=== PATIENT | male | born 1995 | race Caucasian/White ===

== ENCOUNTER 2024-05-14 23:12 | Emergency (ER) | payer OTHER, SELFPAY ==
--- NOTE | ~2024-05-14 | XR_ITS ---
EXAMINATION: XR chest 2V DATE: 05/14/2024 23:48 INDICATION: Shortness of breath. TECHNIQUE: Frontal and lateral views of the chest were obtained. COMPARISON: None. FINDINGS: There is no pneumonia, pleural effusion, or pneumothorax. The heart size is normal. IMPRESSION: 1. No acute cardiopulmonary disease. Reviewed, dictated and finalized at location [facility]
[2024-05-14 23:14] VITALS: BP 155/87; PULSE 82; RESP 15; TEMP 36.6; O2SAT 100
--- NOTE | 2024-05-14 23:17 | ECG_ITS ---
Test Date: 2024-05-14 23:23:05 Measurements Intervals [place] Rate: 78 P: 29 TN: 157 QRS: 37 QRSD: 94 T: 34 QT: 354 QTc: 404 Interpretive Statements SINUS RHYTHM BASELINE ARTIFACT- II, III, AVR, AVL, AVF NORMAL ECG No previous ECG available for comparison Electronically Signed On 05-15-2024 06:20:48 [employer] by Butch Wolf D.O.
[2024-05-14 23:35] LABS: Basophils Absolute Auto 0.1 K/mm3 (0.0-0.1); Eosinophils Absolute Auto 0.1 K/mm3 (0-0.3); Eosinophils Percent Auto 1.3 % (0-4.4); Hematocrit 45.3 % (42.0-52.0); Hemoglobin 16.2 g/dL (14.0-18.0); Immature Granulocyte Absolute 0.02 K/mm3 (0.00-0.031); Immature Granulocyte Percent A 0.3 % (0-0.5); Lymphocytes Absolute Auto 2.02 K/mm3 (0.9-3.2); Mean Corpuscular HGB Conc 35.8 g/dl (32-36); Mean Corpuscular Volume 86.6 fl (80-100); Mean Platelet Volume 11.3 fl (7.4-10.4); Monocytes Absolute Auto 0.7 K/mm3 (0.1-0.6); Monocytes Percent Auto 11.3 % (2.6-8.5); Neutrophils Absolute Auto 3.3 K/mm3 (1.3-6.7); Neutrophils Percent Auto 53.1 % (45.5-73.1); Platelet Count Result 208 k/mm3 (150-375); Red Blood Count 5.23 M/mm3 (4.6-6.20); Red Cell Distribution Width 11.9 % (11.5-14.5); White Blood Count 6.1 K/mm3 (4.5-10.0)
[2024-05-14 23:48] LABS: Alanine Aminotransferase 38 U/L (6-50); Albumin Level 4.6 g/dL (3.5-5.1); Alkaline Phosphatase 60 U/L (38-126); Anion Gap 10 mmol/L (4-12); Aspartate Amino Transferase 37 U/L (17-59); Bilirubin,Total 0.7 mg/dL (0.2-1.3); Blood Urea Nitrogen 16 mg/dL (9-20); Calcium 9.2 mg/dL (8.4-10.2); Carbon Dioxide 23 mmol/L (22-30); Chloride 106 mmol/L (98-107); Estimated CRCL calculation 123 ml/min; Estimated Glomerular Filt Rate > 60; Glucose 100 mg/dL (65-110); Potassium 3.5 mmol/L (3.4-5.0); Sodium 139 mmol/L (137-145)
[2024-05-15 01:16] VITALS: BP 122/73; PULSE 74; RESP 15; TEMP 36.4; O2SAT 97
[2024-05-15 03:17] VITALS: PULSE 63; O2SAT 96
[2024-05-15] MEDS: predniSONE 20 MG TABLET 60 MG PO (03:29)
[2024-05-15] MEDS: IPRATROPIUM 0.5 MG/ALBUTEROL SULFATE 2.5 MG AMPUL.NEB 3 ML INHALATION ×3 (03:40→03:45)
[2024-05-15 03:43] VITALS: PULSE 86; RESP 22
--- NOTE | 2024-05-15 03:46 | ED_ITS ---
HPI - Asthma General Chief Complaint: Asthma Stated Complaint: I have asthma cannot catch breath Time Seen by Provider: 05/15/24 03:12 History of Present Illness HPI Narrative: 28-year-old male with a past medical history significant for mild intermittent asthma presenting to the emergency department with an asthma exacerbation. 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 He had mild rhinorrhea but no productive cough or fevers. No chest discomfort aside from the tightness at the base of his lungs. States it feels like a normal asthma exacerbation but he has never had 1 this bad. Was initially breathless but took some rescue inhaler puffs of his albuterol with improvement. He has otherwise been in his normal state of health. No ICU stays or intubations in the past. On maintenance fluticasone and as needed rescue albuterol at home. No other inhalers or recent steroid therapy. No recent illnesses. Related Data Allergies Allergy/AdvReac Type Severity Reaction Status Date / Time No Known Allergies Allergy Verified 05/15/24 03:30 Review of Systems Review of Systems: As reviewed above in HPI Exam Narrative: GENERAL: no significant distress, talking full sentences, well-appearing well-nourished. HEAD: [Normocephalic, atraumatic.] EYES: [PERRLA and EOMI.] ENT: Nares clear, no rhinorrhea or epistaxis. Mucous membranes moist. NECK: Supple. CHEST: Scattered wheezes appreciated near the bases of both lungs, no prolonged expiratory phase, good inhalation and air entry, expiration. No accessory muscle use for respiration HEART: [Regular rate and rhythm]. No murmur heard. [Normal peripheral pulses.] ABDOMEN: [Soft, nondistended], [nontender], [No rigidity or guarding] EXTREMITIES: Normal range of motion. [No edema.] SKIN: Warm, dry, no rash. NEURO: [No focal deficits]. Alert and oriented [x3.] PSYCH: [Normal mood and affect.] Course Vital Signs Vital signs: Vital Signs Temperature 36.6 C 05/14/24 23:14 Pulse Rate 82 05/14/24 23:14 Respiratory Rate 15 05/14/24 23:14 Blood Pressure 155/87 H 05/14/24 23:14 Pulse Oximetry 100 05/14/24 23:14 Oxygen Delivery Room Air 05/14/24 23:14 Temperature 36.4 C 05/15/24 01:16 Pulse Rate 86 05/15/24 03:43 Respiratory Rate 22 H 05/15/24 03:43 Blood Pressure 122/73 05/15/24 01:16 Pulse Oximetry 96 05/15/24 03:17 Oxygen Delivery Room Air 05/15/24 03:17 MDM - Asthma MDM Narrative Medical decision making narrative: 28-year-old male presenting to the emergency depart with a mild asthma exacerbation. He has otherwise been in his normal state of health and initially was breathless but took some rescue inhaler puffs of his albuterol with improvement symptoms. This occurred several hours ago at work and has been slightly persistent with some residual chest tightness sensation. He does have some scattered wheezing but good air entry bilaterally without any accessory muscle use or respiratory distress. Slightly tachypneic with respiratory rate 22 but saturating well on room air without any fever. speaks in complete clear sentences. Overall appears well. Will treat for mild asthma exacerbation with continuous DuoNeb inhalation and laboratory studies were obtained in triage. X-ray of the chest was ordered as well as p.o. prednisone. EKG was obtained given the chest tightness sensation. Laboratory studies showed no leukocytosis or anemia. Normal platelets. Electrolytes within normal limits, normal renal function panel, normal hepatic function panel. I independently reviewed patient's two view chest x-ray and I do not appreciate any focal consolidations, pneumothorax or opacification. Appears to be clear without any acute cardiopulmonary process. Radiology read pending. patient was re-evaluated after nebulizer treatments and complete symptomatic resolution. At this time is stable for discharge home will be sent home with a short course of prednisone for the next several days encouraged to follow-up with primary care provider. Patient given return precautions expressed understanding of these instructions prior to safe discharge home at this time. Differential Diagnosis Differential diagnosis: Likely Acute exacerbation, Status asthmaticus, Pneumonia, Pneumothorax, Foreign body in trachea and other Medical Records Attestation: I reviewed the patient's medical records. Lab Data Attestation: I reviewed the patient's lab results. 05/14/24 23:28 05/14/24 23:28 Labs: Lab Results 05/14/24 Range/Units 23:28 WBC 6.1 (4.5-10.0) K/mm3 RBC 5.23 (4.6-6.20) M/mm3 Hgb 16.2 (14.0-18.0) g/dL Hct 45.3 (42.0-52.0) % MCV 86.6 (80-100) fl MCH 31.0 (26-34) pg MCHC 35.8 (32-36) g/dl RDW 11.9 (11.5-14.5) % Plt Count 208 (150-375) k/mm3 MPV 11.3 H (7.4-10.4) fl Immature Gran % (Auto) 0.3 (0-0.5) % Neut % (Auto) 53.1 (45.5-73.1) % Lymph % (Auto) 33.0 (18.3-44.2) % [place] % (Auto) 11.3 H (2.6-8.5) % Eos % (Auto) 1.3 (0-4.4) % Baso % (Auto) 1.0 (0.2-1.2) % Lymph # (Auto) 2.02 (0.9-3.2) K/mm3 [place] # (Auto) 0.7 H (0.1-0.6) K/mm3 Eos # (Auto) 0.1 (0-0.3) K/mm3 Baso # (Auto) 0.1 (0.0-0.1) K/mm3 Abs Immat Gran (auto) 0.02 (0.00-0.031) K/mm3 Absolute Neuts (auto) 3.3 (1.3-6.7) K/mm3 Absolute Nucleated RBC 0.000 (0.0-0.012) K/mm3 Nucleated RBC % 0.0 (0.0-0.2) % Sodium 139 (137-145) mmol/L Potassium 3.5 (3.4-5.0) mmol/L Chloride 106 (98-107) mmol/L Carbon Dioxide 23 (22-30) mmol/L Anion Gap 10 (4-12) mmol/L BUN 16 (9-20) mg/dL Creatinine 1.00 (0.7-1.3) mg/dL Estim Creat Clear Calc 123 ml/min Estimated GFR > 60 (59 - ) Glucose 100 (65-110) mg/dL Calcium 9.2 (8.4-10.2) mg/dL Total Bilirubin 0.7 (0.2-1.3) mg/dL AST 37 (17-59) U/L ALT 38 (6-50) U/L Alkaline Phosphatase 60 (38-126) U/L Total Protein 8.0 (6.3-8.2) g/dL Albumin 4.6 (3.5-5.1) g/dL Imaging Data Attestation: I personally reviewed and interpreted this imaging study as follows: My impression: No pneumothorax, consolidations or edema no acute cardiopulmonary process ECG Data EKG #1: Attestation: I personally reviewed and interpreted this ECG as follows: ECG completion date: 05/15/24 ECG completion time: 23:23 Prior ECG tracings: not available for review Interpretation: regular rate rhythm an axis, no ST segment elevations, depressions or inversions. Rate of 78, QRS 94, QTC 404, no previous EKG for comparison but otherwise normal sinus without signs of acute ischemic evidence or any ectopy, arrhythmia EKG Interpretation: normal rate and sinus rhythm Discharge Plan Discharge Clinical Impression: Asthma exacerbation Patient Disposition: Home, Self-Care Condition: Stable Instructions: Antibiotic Form, Asthma (ED), Bronchospasm (ED) Additional Instructions: follow-up with your primary care provider and complete the course of pred nisone. Return with any new or recurring symptoms. Prescriptions: New prednisone 50 mg tablet 50 mg PO DAILY 5 Days Qty: 5 0RF Follow-up/Referrals: PHYSICIAN NOT ON STAFF,NONSTAFF [Non-Staff] - Time of Disposition: 03:54
[2024-05-15 05:48] VITALS: BP 119/89; PULSE 78; RESP 18; O2SAT 98
== END 2024-05-15 05:49 | disposition home or self-care (01) ==
PROVIDERS: Emergency Provider Student in an Organized Health Care Education/Training Program
DX: J45.21 Mild intermittent asthma with (acute) exacerbation (principal)
CPT/HCPCS: 36415; 71046; 80053; 85025; 93005; 94640; 99284; J7512